=== PATIENT | female | born 2000 | race Asian ===

== ENCOUNTER 2018-05-13 13:48 | Inpatient (IN) | payer OTHER, SELFPAY ==
[2018-05-13] MEDS ORDERED: CCU Electrolyte Replacement 1 EACH IVPB ONE (14:56)
[2018-05-13] MEDS ORDERED: NS 0.9% w/ 20 MEQ KCL 1,000 ML IV PRN ×2 (14:56)
[2018-05-13] MEDS ORDERED: Dextrose 5 %-0.45 % NaCl 1,000 ML IV PRN (14:56)
[2018-05-13] MEDS ORDERED: Sodium Chloride 0.9% 1,000 ML IV PRN ×4 (14:56)
[2018-05-13] MEDS ORDERED: Calcium Carbonate 500 MG ChewTAB PO PRN (14:59)
[2018-05-13] MEDS ORDERED: Acetaminophen 325 MG TAB PO PRN (14:59)
[2018-05-13] MEDS ORDERED: Ondansetron ODT 4 MG TAB PO PRN (14:59)
[2018-05-13 15:30] LABS: Hemoglobin A1c 13.6 % (4.0-6.0)
[2018-05-13 15:33] LABS: BHCG - Serum Negative (NEGATIVE); Pregs Control Background? CLEAR/WHITE (CLR/WHITE); Pregs Control Bar Appear? YES (CONTROL BAR)
[2018-05-13] MEDS ORDERED: CCU ELECTROLYTE REPLACEMENT PROTOCOL FS PRN (15:37)
[2018-05-13] MEDS ORDERED: Magnesium 2 GM/NS 0.9% 100 ML 2 GM in Premix Bag 1 BAG IVPB PRN (15:37)
[2018-05-13] MEDS ORDERED: Potassium Phosphate 12 MMOL in Sodium Chloride 0.9% 250 ML 250 ML IV PRN (15:37)
[2018-05-13] MEDS ORDERED: Potassium Chloride 20 MEQ TAB PO PRN (15:37)
[2018-05-13] MEDS ORDERED: Potassium Phosphate 9 MMOL in Sodium Chloride 0.9% 100 ML IVPB PRN (15:37)
[2018-05-13] MEDS ORDERED: Potassium Chloride 40 MEQ in Sodium Chloride 0.9% 250 ML 250 ML IVPB PRN (15:37)
[2018-05-13] MEDS ORDERED: Potassium Chloride 40 MEQ in Premix Bag 1 BAG IVPB PRN (15:37)
[2018-05-13] MEDS ORDERED: Magnesium Oxide 400 MG TAB PO PRN ×2 (15:37)
[2018-05-13] MEDS ORDERED: Potassium Phosphate 15 MMOL in Sodium Chloride 0.9% 250 ML 250 ML IV PRN (15:37)
[2018-05-13 15:40] LABS: Phosphorus 3.9 mg/dL (2.3-4.7)
[2018-05-13 15:41] LABS: BUN (Urea Nitrogen) 9 mg/dL (8.4-21.0); Calc. Creatinine Clearance 0 mL/min (70-130); Calcium 9.2 mg/dL (7.8-10.44); Chloride 114 mmol/L (98-107); Estimated GFR-MDRD 77; Glucose 298 mg/dL (70-105); Potassium 4.5 mmol/L (3.5-5.1); Sodium 141 mmol/L (136-145)
[2018-05-13 15:43] VITALS: BMI 20.1
[2018-05-13 15:44] LABS: Lactic Acid 1.5 mmol/L (0.5-2.2)
[2018-05-13] MEDS ORDERED: Zolpidem Tartrate 5 MG TAB PO PRN (15:49)
[2018-05-13] MEDS ORDERED: Eucerin (Mineral Oil/Petrolatum,White) 30 gm Jar TOP PRN (15:49)
[2018-05-13] MEDS ORDERED: HYDROcodone/Acetaminophen 5/325 mg Tablet PO PRN (15:49)
[2018-05-13] MEDS ORDERED: Diabetic Tussin 200 MG/10 ML UDCUP PO PRN (15:49)
[2018-05-13] MEDS ORDERED: Sodium Chloride 0.65% Nasal 44 ML BOT EA NARE PRN (15:49)
[2018-05-13] MEDS ORDERED: Bisacodyl 5 MG TAB PO PRN (15:49)
[2018-05-13] MEDS ORDERED: Artificial Tears 18 DROP/0.9 ML EA EYE PRN (15:49)
[2018-05-13 15:51] LABS: Carbon Dioxide Less than 8 mmol/L (22-29)
[2018-05-13] MEDS: Ondansetron PF 4 MG/2 ML Vial IVP PRN (15:56)
[2018-05-13] MEDS: D5 1/2 NS w/20 mEq KCL 1,000 ML IV PRN ×2 (15:56→20:07)
--- NOTE | 2018-05-13 16:00 | HP ---
PRIMARY CARE PHYSICIAN: [facility] call admission. REASON FOR ADMISSION: Transfer from [facility] Emergency Room to our hospital for new onset diabetes type 1 and DKA. HISTORY OF PRESENT ILLNESS: A 17-year-old Pashto female who has no significant medical history who p resented to [facility] emergency room with a complaint of nausea and vomiting whi ch started last night. Patient was having persistent vomiting entire night as well as this morning s he was not able to keep anything down. She was feeling dehydrated. She was feeling weak and dizzy a nd that is why she went to local emergency room. Patient was diagnosed with diabetic ketoacidosis. The patient was given IV fluid and subsequently the patient was transferred to our hospital for furth er treatment. Patient denies any vomiting of blood. The patient denies any bilious vomiting. Patient denies any h eavy alcohol consumption. She drinks alcohol only occasionally. Before all this symptoms started, p atient was having polyuria and polydipsia, which she was thinking her normal habit of drinking lot of water. Patient's weight is also unchanged significantly. She does have family history of diabetes. She denies any fever or chills. She denies any allergy symptoms. She denies any respiratory sympt oms. She denies any UTI symptoms. She denies any chest pain, palpitation or syncope. REVIEW OF SYSTEMS: The following complete review of systems was negative, unless otherwise mentioned in the HPI or below: Constitutional: Weight loss or gain, ability to conduct usual activities. Skin: Rash, itching. Eyes: Double vision, pain. ENT/Mouth: Nose bleeding, neck stiffness, pain, tenderness. Cardiovascular: Palpitations, dyspnea on exertion, orthopnea. Respiratory: Shortness of breath, wheezing, cough, hemoptysis, fever or night sweats. Gastrointestinal: Poor appetite, abdominal pain, heartburn, nausea, vomiting, constipation, or diarr hea. Genitourinary: Urgency, frequency, dysuria, nocturia. Musculoskeletal: Pain, swelling. Neurologic/Psychiatric: Anxiety, depression. Allergy/Immunologic: Skin rash, bleeding tendency. Please see my HPI for pertinent positive and negative. All other review of systems reviewed and nega tive except as mentioned in the HPI. PAST MEDICAL HISTORY: The patient denies any previous medical history. PAST SURGICAL HISTORY: The patient reports that when she was 3 years old, at that time, she had sunshine gn tumor removed, which surgery done in [place], details not available. PAST PSYCHIATRIC HISTORY: Reviewed and negative. FAMILY HISTORY: Both parents have diabetes and one sister also diagnosed with diabetes. No family h istory of cancer, stroke, or coronary artery disease. SOCIAL HISTORY: Patient is a college student. She drinks alcohol socially. She denies any smoking. She denies any other illicit drug abuse. She is unmarried. EMERGENCY ROOM COURSE: At [facility] ER reviewed. The patient is currently getting insulin drip and IV fluid. CURRENT HOME MEDICATIONS: The patient prior to this she was not taking any prescribed or non-prescri bed medication. ALLERGIES: No known drug allergy. PHYSICAL EXAMINATION: VITAL SIGNS: Currently, blood pressure 100/70, pulse 102, respiratory rate 18, temperature 98.6, sat uration 100% on room air. GENERAL: The patient is currently alert, awake, no obvious acute distress. HEAD: Normocephalic, atraumatic. EYES: Pupils round, reactive to light. Extraocular muscle intact. ENT: Oropharynx within normal limits. Dry mucous membrane, no oral lesion, no pharyngeal erythema, no exudate. NECK: Supple, no JVD, no thyromegaly, no carotid bruit, no jugular venous distention. LUNGS: Clear to auscultation without any rhonchi or rales. CARDIAC: S1 and S2 regular, tachycardia, no murmur, no gallop, no rub. ABDOMEN: Soft, bowel sounds present, nontender, nondistended. No organomegaly, no mass, no suprapub ic tenderness. BACK: Unremarkable, no CVA tenderness. EXTREMITIES: Upper extremity passive movements of all joints are normal. Lower extremities: No gagan ma. Good distal pulsation. SKIN: No skin rash. HEMATOLOGICAL SYSTEM: No lymphadenopathy. PSYCHIATRIC: Normal affect. NEUROLOGIC: Nonfocal examination. SIGNIFICANT LABORATORY DATA: 1. Beta hCG negative. VBG: pH 7.14, CO2 24.3, O2 48, bicarbonate 8.3. 2. BMP: Sodium 142, potassium 4.2, chloride 110, glucose 369, BUN 10, creatinine 0.3, hemoglobin 17 .0, anion gap 27. 3. CBC: WBC 9.6, hemoglobin 16.7, platelet 276, albumin 5.1, alkaline phosphatase 76, AST 22, ALT 1 6, amylase 32, total protein 8.6. Urinalysis, glucosuria, ketonuria. ASSESSMENT AND PLAN/IMPRESSION: 1. New onset diabetes type 1. 2. Diabetes ketoacidosis, type 1. 3. Dehydration. PLAN: 1. The patient is admitted to Intermediate Care Unit. DKA protocol initiated. We will monitor BMP, serum ketones as per protocol. We will repeat electrolytes. Hemoglobin A1c checked. Upon stabiliz ation, we will consider transferring this patient to medical floor tomorrow and we will assess requir ement for insulin. Diabetes education will be given. Dietitian will be consulted. 2. Deep venous thrombosis prophylaxis, Lovenox 40 mg subcu daily. 3. Gastrointestinal prophylaxis, Pepcid 20 mg p.o. b.i.d. 4. Code status: The patient is FULL CODE. The patient is making decision by herself. Disposition plan based on clinical course. We are expecting patient's stay in hospital more than 2 m idnights. Plan of care discussed with the patient in detail.
[2018-05-13 16:40] LABS: ALT (SGPT) 9 U/L (8-55); AST (SGOT) 10 U/L (5-30); Albumin 4.6 g/dL (3.5-5.0); Alkaline Phosphatase 67 U/L (40-150); Bilirubin, Direct 0.1 mg/dL (0.1-0.3); Bilirubin, Total 0.5 mg/dL (0.2-1.2); Lipase 16 U/L (8-78); Protein, Total 7.8 g/dL (6.0-8.3)
[2018-05-13 19:42] LABS: Anion Gap 18 mmol/L (10-20); BUN (Urea Nitrogen) 7 mg/dL (8.4-21.0); Calc. Creatinine Clearance 91 mL/min (70-130); Calcium 8.9 mg/dL (7.8-10.44); Carbon Dioxide 10 mmol/L (22-29); Chloride 116 mmol/L (98-107); Estimated GFR-MDRD 71; Glucose 245 mg/dL (70-105); Sodium 140 mmol/L (136-145)
[2018-05-13] MEDS: Famotidine 20 MG TAB PO SCH (20:09)
[2018-05-14] MEDS: D5 1/2 NS w/20 mEq KCL 1,000 ML IV PRN ×2 (00:06→04:06)
[2018-05-14] MEDS: Ondansetron PF 4 MG/2 ML Vial IVP PRN (00:10)
[2018-05-14 05:03] LABS: ALT (SGPT) Less than 7 U/L (8-55); AST (SGOT) 7 U/L (5-30); Albumin 3.4 g/dL (3.5-5.0); Alkaline Phosphatase 48 U/L (40-150); Anion Gap 9 mmol/L (10-20); BUN (Urea Nitrogen) 8 mg/dL (8.4-21.0); Bilirubin, Total 0.5 mg/dL (0.2-1.2); Calc. Creatinine Clearance 112 mL/min (70-130); Calcium 8.4 mg/dL (7.8-10.44); Carbon Dioxide 14 mmol/L (22-29); Chloride 115 mmol/L (98-107); Estimated GFR-MDRD Greater than 90; Globulin 2.5 g/dL (2.4-3.5); Glucose 192 mg/dL (70-105); Magnesium 1.6 mg/dL (1.7-2.2); Phosphorus 1.8 mg/dL (2.3-4.7); Potassium 3.8 mmol/L (3.5-5.1); Protein, Total 5.9 g/dL (6.0-8.3); Sodium 134 mmol/L (136-145)
[2018-05-14] MEDS ORDERED: Dextrose 5% in Water 1,000 ML IV PRN (08:54)
[2018-05-14] MEDS ORDERED: Dextrose 50% Abboject 50 ML SYRINGE SLOW IVP PRN (08:54)
[2018-05-14] MEDS ORDERED: Insulin Glargine 10 UNITS in Pre-Filled Syringe SC SCH (09:00)
[2018-05-14] MEDS: Enoxaparin Sodium 40 MG/0.4 ML SYRINGE SC SCH (09:20)
[2018-05-14] MEDS: Famotidine 20 MG TAB PO SCH ×2 (09:20→20:39)
--- NOTE | 2018-05-14 10:23 | PDOC.PN ---
- Subjective Encounter Start Date: 05/14/18 Encounter Start Time: 08:45 -: old records requested/rev Patient seen and examined. No new complaints. No overnight events - Objective Resuscitation Status: Resuscitation Status FULL:Full Resuscitation MAR Reviewed: Yes Vital Signs & Weight: Vital Signs (12 hours) Temp Pulse Resp BP Pulse Ox 05/14/18 08:00 99 05/14/18 07:48 97.8 F 89 23 H 107/65 100 05/14/18 04:40 98.2 F 87 17 106/77 99 05/14/18 00:28 98.7 F 94 16 115/62 99 Weight Weight 140 lb 9.6 oz I&O: 05/13/18 05/14/18 05/15/18 06:59 06:59 06:59 Intake Total 4322 512 Balance 4322 512 Result Diagrams: 05/14/18 04:14 Additional Labs: Accuchecks 05/14/18 05/14/18 05/14/18 08:02 07:08 06:09 POC Glucose 208 H 222 H 192 H 05/14/18 05/14/18 05/14/18 04:46 03:13 02:13 POC Glucose 181 H 169 H 170 H 05/14/18 05/14/18 05/13/18 01:12 00:03 23:06 POC Glucose 146 H 165 H 184 H 05/13/18 05/13/18 05/13/18 22:05 21:04 20:09 POC Glucose 193 H 212 H 220 H 05/13/18 05/13/18 05/13/18 18:54 17:59 17:13 POC Glucose 230 H 234 H 226 H 05/13/18 05/13/18 16:21 15:12 POC Glucose 232 H 271 H EKG Reviewed by me: Yes (nsr) Phys Exam - Physical Examination Constitutional: NAD HEENT: PERRLA, moist MMs, sclera anicteric Neck: no JVD, supple Respiratory: no wheezing, no rales, no rhonchi Cardiovascular: RRR, no significant murmur, no rub Gastrointestinal: soft, non-tender, no distention, positive bowel sounds Musculoskeletal: no edema, pulses present Neurological: non-focal, normal sensation, moves all 4 limbs Lymphatic: no nodes Psychiatric: normal affect, A&O x 3 Skin: no rash, normal turgor Dx/Plan (1) DKA, type 1 Code(s): E10.10 - TYPE 1 DIABETES MELLITUS WITH KETOACIDOSIS WITHOUT COMA Status: Acute (2) Dehydration Code(s): E86.0 - DEHYDRATION Status: Acute (3) Abnormal blood electrolyte level Code(s): E87.8 - OTH DISORDERS OF ELECTROLYTE AND FLUID BALANCE, NEC Status: Acute (4) New onset type 1 diabetes mellitus, uncontrolled Code(s): E10.65 - TYPE 1 DIABETES MELLITUS WITH HYPERGLYCEMIA Status: Acute - Plan cont current plan of care, plan discussed w/ family * DKA now resolved, will start lantus 10 unit sc daily * gradually wean off insulin drip * transfer to medical floor * today will continue accucheck q 4 hrly and humalog as per sliding scale * dietary consult placed for diabetic diet education * discussed with mother bedside * replace electrolytes today * repeat labs tomorrow. Review of Systems - Review of Systems Eyes: negative: Pain, Vision Change, Conjunctivae Inflammation, Eyelid Inflammation, Redness, Other ENT: negative: Ear Pain, Ear Discharge, Nose Pain, Nose Discharge, Nose Congestion, Mouth Pain, Mouth Swelling, Throat Pain, Throat Swelling, Other Respiratory: negative: Cough, Dry, Shortness of Breath, Hemoptysis, SOB with Excertion, Pleuritic Pain, Sputum, Wheezing Cardiovascular: negative: chest pain, palpitations, orthopnea, paroxysmal nocturnal dyspnea, edema, light headedness, other Gastrointestinal: negative: Nausea, Vomiting, Abdominal Pain, Diarrhea, Constipation, Melena, Hematochezia, Other Genitourinary: negative: Dysuria, Frequency, Incontinence, Hematuria, Retention , Other Musculoskeletal: negative: Neck Pain, Shoulder Pain, Arm Pain, Back Pain, Hand Pain, Leg Pain, Foot Pain, Other Skin: negative: Rash, Lesions, Jorje, Bruising, Other - Medications/Allergies Allergies/Adverse Reactions: Allergies Allergy/AdvReac Type Severity Reaction Status Date / Time No Known Drug Allergies Allergy Verified 05/13/18 15:29 Medications: Current Medications Acetaminophen (Tylenol) 650 mg PO Q4H PRN PRN Reason: Headache/Fever/Mild Pain (1-3) Last Admin: 05/14/18 00:13 Dose: 650 mg Hydrocodone Bitart/Acetaminophen ([place] 5/325) 1 tab PO Q4H PRN PRN Reason: Moderate Pain (4-6) Artificial Tears (Tears Naturale) 2 drop EA EYE PRN PRN PRN Reason: Dry Eyes Bisacodyl (Dulcolax) 10 mg PO DAILYPRN PRN PRN Reason: Constipation Calcium Carbonate (Tums) 1,000 mg PO Q4H PRN PRN Reason: Heartburn or Indigestion Dextrose/Water (Dextrose 50%) 25 gm SLOW IVP PRN PRN PRN Reason: Hypoglycemia Enoxaparin Sodium (Lovenox) 40 mg SC 0900 [facility] Last Admin: 05/14/18 09:20 Dose: 40 mg Famotidine (Pepcid) 20 mg PO BID [facility] Last Admin: 05/14/18 09:20 Dose: 20 mg Glucagon (Glucagon) 1 mg IM PRN PRN PRN Reason: Hypoglycemia Guaifenesin (Robitussin Sf) 200 mg PO Q4H PRN PRN Reason: Cough Insulin Glargine 10 units/ (Miscellaneous Medication) 0.1 mls @ 0 mls/hr SC QAM [facility] Last Admin: 05/14/18 09:20 Dose: 0.1 mls Dextrose/Water (D5w) 1,000 mls @ 0 mls/hr IV .Q0M PRN PRN Reason: Hypoglycemia Insulin Human Lispro (Humalog) 0 units SC .AGGRESSIVE SLIDING PRN PRN Reason: Aggressive Correctional Scale Insulin Human Lispro (Humalog) 0 units SC .BEDTIME SLIDING SC PRN PRN Reason: Bedtime Correctional Scale Mineral Oil/White Petrolatum (Eucerin Cream) 0 gm TOP BIDPRN PRN PRN Reason: Dry Skin Ondansetron HCl (Zofran Odt) 4 mg PO Q6H PRN PRN Reason: Nausea/Vomiting Ondansetron HCl (Zofran) 4 mg IVP Q6H PRN PRN Reason: Nausea/Vomiting Last Admin: 05/14/18 00:10 Dose: 4 mg Sodium Chloride ([place] Nasal [place] 0.65%) 0 ml EA NARE QIDPRN PRN PRN Reason: Nasal Congestion Zolpidem Tartrate (Ambien) 5 mg PO HSPRN PRN PRN Reason: Insomnia
[2018-05-14] MEDS: HumaLOG 300 UNITS/3 ML VIAL SC PRN ×3 (12:05→21:45)
[2018-05-15 04:15] LABS: #Lymphocytes 1.4 thou/uL (1.20-3.40); #Monocytes 0.3 thou/uL (0.11-0.59); #Neutrophils 2.1 thou/uL (1.40-6.50); %Basophils 1.1 % (0.0-1.0); %Eosinophils 0.8 % (0.0-10.0); %Lymphocytes 35.7 % (28.0-48.0); %Monocytes 7.9 % (0.0-4.0); %Neutrophils 54.5 % (31.0-61.0); Hemoglobin 12.7 g/dL (12.0-16.0); Mean Corpuscular HGB CONC 34.6 g/dL (32.0-36.0); Mean Corpuscular Hemoglobin 31.9 pg (25.0-35.0); Mean Corpuscular Volume 92.4 fL (78.0-98.0); Platelet Count 193 thou/uL (130-400); RBC Distribution Width 11.4 % (11.5-14.5); Red Blood Cell (RBC) Count 3.97 mill/uL (4.00-5.20); White Blood Cell (WBC) Count 3.8 thou/uL (4.8-10.8)
[2018-05-15 04:28] LABS: Anion Gap 13 mmol/L (10-20); BUN (Urea Nitrogen) 8 mg/dL (8.4-21.0); Calc. Creatinine Clearance 132 mL/min (70-130); Carbon Dioxide 17 mmol/L (22-29); Chloride 110 mmol/L (98-107); Estimated GFR-MDRD Greater than 90; Glucose 306 mg/dL (70-105); Magnesium 1.6 mg/dL (1.7-2.2); Potassium 3.4 mmol/L (3.5-5.1); Sodium 137 mmol/L (136-145)
[2018-05-15] MEDS: HumaLOG 300 UNITS/3 ML VIAL SC PRN ×4 (06:00→20:49)
[2018-05-15] MEDS ORDERED: Magnesium Sulfate 4 GM in Sodium Chloride 0.9% 250 ML 250 ML IVPB SCH (08:00)
[2018-05-15] MEDS ORDERED: Potassium Phosphate 30 MMOL in Sodium Chloride 0.9% 500 ML IVPB SCH (08:00)
[2018-05-15] MEDS: Enoxaparin Sodium 40 MG/0.4 ML SYRINGE SC SCH (09:14)
[2018-05-15] MEDS: Famotidine 20 MG TAB PO SCH ×2 (09:14→20:48)
[2018-05-15] MEDS: Insulin Glargine 16 UNITS in Pre-Filled Syringe 1 EACH SC SCH (09:17)
--- NOTE | 2018-05-15 10:21 | PDOC.PN ---
- Subjective Encounter Start Date: 05/15/18 Encounter Start Time: 08:40 Patient seen and examined. No new complaints. No overnight events - Objective Resuscitation Status: Resuscitation Status FULL:Full Resuscitation MAR Reviewed: Yes Vital Signs & Weight: Vital Signs (12 hours) Temp Pulse Resp BP Pulse Ox 05/15/18 08:00 98.2 F 85 16 115/74 98 05/15/18 04:00 97.8 F 78 16 117/77 99 05/15/18 00:00 98.7 F 84 16 110/74 98 Weight Weight 140 lb 9.6 oz I&O: 05/14/18 05/15/18 05/16/18 06:59 06:59 06:59 Intake Total 4322 752 Balance 4322 752 Result Diagrams: 05/15/18 03:14 05/15/18 03:14 Additional Labs: Accuchecks 05/15/18 05/15/18 05/15/18 09:19 05:56 00:52 POC Glucose 206 H 260 H 229 H 05/14/18 05/14/18 05/14/18 20:48 15:13 11:53 POC Glucose 322 H 247 H 190 H Phys Exam - Physical Examination Constitutional: NAD HEENT: PERRLA, moist MMs, sclera anicteric Neck: no JVD, supple Respiratory: no wheezing, no rales, no rhonchi Cardiovascular: RRR, no significant murmur, no rub Gastrointestinal: soft, non-tender, no distention, positive bowel sounds Musculoskeletal: no edema, pulses present Neurological: non-focal, normal sensation, moves all 4 limbs Psychiatric: normal affect, A&O x 3 Skin: no rash, normal turgor Dx/Plan (1) DKA, type 1 Code(s): E10.10 - TYPE 1 DIABETES MELLITUS WITH KETOACIDOSIS WITHOUT COMA Status: Acute (2) Dehydration Code(s): E86.0 - DEHYDRATION Status: Resolved (3) Abnormal blood electrolyte level Code(s): E87.8 - OTH DISORDERS OF ELECTROLYTE AND FLUID BALANCE, NEC Status: Acute (4) New onset type 1 diabetes mellitus, uncontrolled Code(s): E10.65 - TYPE 1 DIABETES MELLITUS WITH HYPERGLYCEMIA Status: Acute - Plan cont current plan of care * medication reviewed as below * symptomatic treatment * increase levemir 16 unit sc am and 8 unit sc pm * replace potassium phosphate, magnesium sulfate * repeat labs later today * will monitor as her ketons still high. Review of Systems - Review of Systems ENT: negative: Ear Pain, Ear Discharge, Nose Pain, Nose Discharge, Nose Congestion, Mouth Pain, Mouth Swelling, Throat Pain, Throat Swelling, Other Respiratory: negative: Cough, Dry, Shortness of Breath, Hemoptysis, SOB with Excertion, Pleuritic Pain, Sputum, Wheezing Cardiovascular: negative: chest pain, palpitations, orthopnea, paroxysmal nocturnal dyspnea, edema, light headedness, other Gastrointestinal: negative: Nausea, Vomiting, Abdominal Pain, Diarrhea, Constipation, Melena, Hematochezia, Other Genitourinary: negative: Dysuria, Frequency, Incontinence, Hematuria, Retention , Other Musculoskeletal: negative: Neck Pain, Shoulder Pain, Arm Pain, Back Pain, Hand Pain, Leg Pain, Foot Pain, Other Skin: negative: Rash, Lesions, Jorje, Bruising, Other - Medications/Allergies Allergies/Adverse Reactions: Allergies Allergy/AdvReac Type Severity Reaction Status Date / Time No Known Drug Allergies Allergy Verified 05/13/18 15:29 Medications: Current Medications Acetaminophen (Tylenol) 650 mg PO Q4H PRN PRN Reason: Headache/Fever/Mild Pain (1-3) Last Admin: 05/14/18 00:13 Dose: 650 mg Hydrocodone Bitart/Acetaminophen ([place] 5/325) 1 tab PO Q4H PRN PRN Reason: Moderate Pain (4-6) Artificial Tears (Tears Naturale) 2 drop EA EYE PRN PRN PRN Reason: Dry Eyes Bisacodyl (Dulcolax) 10 mg PO DAILYPRN PRN PRN Reason: Constipation Calcium Carbonate (Tums) 1,000 mg PO Q4H PRN PRN Reason: Heartburn or Indigestion Dextrose/Water (Dextrose 50%) 25 gm SLOW IVP PRN PRN PRN Reason: Hypoglycemia Enoxaparin Sodium (Lovenox) 40 mg SC 0900 [facility] Last Admin: 05/15/18 09:14 Dose: 40 mg Famotidine (Pepcid) 20 mg PO BID [facility] Last Admin: 05/15/18 09:14 Dose: 20 mg Glucagon (Glucagon) 1 mg IM PRN PRN PRN Reason: Hypoglycemia Guaifenesin (Robitussin Sf) 200 mg PO Q4H PRN PRN Reason: Cough Dextrose/Water (D5w) 1,000 mls @ 0 mls/hr IV .Q0M PRN PRN Reason: Hypoglycemia Magnesium Sulfate 4 gm/ Sodium (Chloride) 258 mls @ 86 mls/hr IVPB NOW [facility] Stop: 05/15/18 10:59 Last Admin: 05/15/18 09:14 Dose: 258 mls Potassium Phosphate 30 mmol/ (Sodium Chloride) 510 mls @ 83.3 mls/hr IVPB NOW [facility] Stop: 05/15/18 14:08 Insulin Glargine 16 units/ (Miscellaneous Medication) 0.16 mls @ 0 mls/hr SC QAM [facility] Last Admin: 05/15/18 09:17 Dose: 0.16 mls Insulin Glargine 8 units/ (Miscellaneous Medication) 0.08 mls @ 0 mls/hr SC HS [facility] Insulin Human Lispro (Humalog) 0 units SC .AGGRESSIVE SLIDING PRN PRN Reason: Aggressive Correctional Scale Last Admin: 05/15/18 06:00 Dose: 9 unit Insulin Human Lispro (Humalog) 0 units SC .BEDTIME SLIDING SC PRN PRN Reason: Bedtime Correctional Scale Last Admin: 05/14/18 21:45 Dose: 4 units Mineral Oil/White Petrolatum (Eucerin Cream) 0 gm TOP BIDPRN PRN PRN Reason: Dry Skin Ondansetron HCl (Zofran Odt) 4 mg PO Q6H PRN PRN Reason: Nausea/Vomiting Ondansetron HCl (Zofran) 4 mg IVP Q6H PRN PRN Reason: Nausea/Vomiting Last Admin: 05/14/18 00:10 Dose: 4 mg Sodium Chloride ([place] Nasal [place] 0.65%) 0 ml EA NARE QIDPRN PRN PRN Reason: Nasal Congestion Zolpidem Tartrate (Ambien) 5 mg PO HSPRN PRN PRN Reason: Insomnia
[2018-05-15 16:19] LABS: Magnesium 1.9 mg/dL (1.7-2.2); Phosphorus 3.9 mg/dL (2.3-4.7); Potassium 3.8 mmol/L (3.5-5.1)
[2018-05-15] MEDS ORDERED: Insulin Glargine 8 UNITS in Pre-Filled Syringe 1 EACH SC SCH (21:00)
[2018-05-16] MEDS: HumaLOG 300 UNITS/3 ML VIAL SC PRN ×3 (00:29→08:33)
[2018-05-16] MEDS: Insulin Glargine 16 UNITS in Pre-Filled Syringe 1 EACH SC SCH (08:33)
[2018-05-16] MEDS: Enoxaparin Sodium 40 MG/0.4 ML SYRINGE SC SCH (08:34)
[2018-05-16] MEDS: Famotidine 20 MG TAB PO SCH (08:35)
[2018-05-16 09:10] VITALS: BP 117/82; TEMP 97.8
--- NOTE | 2018-05-16 09:37 | PDOC.PN ---
- Subjective Encounter Start Date: 05/16/18 Encounter Start Time: 09:10 Patient seen and examined. No new complaints. No overnight events - Objective Resuscitation Status: Resuscitation Status FULL:Full Resuscitation MAR Reviewed: Yes Vital Signs & Weight: Vital Signs (12 hours) Temp Pulse Resp BP Pulse Ox 05/16/18 08:00 97.8 F 83 16 117/82 98 Weight Weight 140 lb 9.6 oz I&O: 05/15/18 05/16/18 05/17/18 06:59 06:59 06:59 Intake Total 752 1000 Balance 752 1000 Result Diagrams: 05/15/18 03:14 05/15/18 15:43 Additional Labs: Accuchecks 05/16/18 05/16/18 05/16/18 08:33 04:49 00:12 POC Glucose 179 H 226 H 299 H 05/15/18 05/15/18 05/15/18 20:45 16:19 13:33 POC Glucose 342 H 275 H 230 H 05/15/18 09:19 POC Glucose 206 H Phys Exam - Physical Examination Constitutional: NAD HEENT: PERRLA, moist MMs, sclera anicteric Neck: no JVD, supple Respiratory: no wheezing, no rales, no rhonchi Cardiovascular: RRR, no significant murmur, no rub Gastrointestinal: soft, non-tender, no distention, positive bowel sounds Musculoskeletal: no edema, pulses present Neurological: non-focal, normal sensation, moves all 4 limbs Psychiatric: normal affect, A&O x 3 Skin: no rash, normal turgor Dx/Plan (1) DKA, type 1 Code(s): E10.10 - TYPE 1 DIABETES MELLITUS WITH KETOACIDOSIS WITHOUT COMA Status: Acute (2) Dehydration Code(s): E86.0 - DEHYDRATION Status: Resolved (3) Abnormal blood electrolyte level Code(s): E87.8 - OTH DISORDERS OF ELECTROLYTE AND FLUID BALANCE, NEC Status: Acute (4) New onset type 1 diabetes mellitus, uncontrolled Code(s): E10.65 - TYPE 1 DIABETES MELLITUS WITH HYPERGLYCEMIA Status: Acute - Plan cont current plan of care, plan discussed w/ family * medication reviewed as below * symptomatic treatment * see discharge summery. Review of Systems - Review of Systems ENT: negative: Ear Pain, Ear Discharge, Nose Pain, Nose Discharge, Nose Congestion, Mouth Pain, Mouth Swelling, Throat Pain, Throat Swelling, Other Respiratory: negative: Cough, Dry, Shortness of Breath, Hemoptysis, SOB with Excertion, Pleuritic Pain, Sputum, Wheezing Cardiovascular: negative: chest pain, palpitations, orthopnea, paroxysmal nocturnal dyspnea, edema, light headedness, other Gastrointestinal: negative: Nausea, Vomiting, Abdominal Pain, Diarrhea, Constipation, Melena, Hematochezia, Other Genitourinary: negative: Dysuria, Frequency, Incontinence, Hematuria, Retention , Other Musculoskeletal: negative: Neck Pain, Shoulder Pain, Arm Pain, Back Pain, Hand Pain, Leg Pain, Foot Pain, Other Skin: negative: Rash, Lesions, Jorje, Bruising, Other - Medications/Allergies Allergies/Adverse Reactions: Allergies Allergy/AdvReac Type Severity Reaction Status Date / Time No Known Drug Allergies Allergy Verified 05/13/18 15:29 Medications: Current Medications Acetaminophen (Tylenol) 650 mg PO Q4H PRN PRN Reason: Headache/Fever/Mild Pain (1-3) Last Admin: 05/14/18 00:13 Dose: 650 mg Hydrocodone Bitart/Acetaminophen ([place] 5/325) 1 tab PO Q4H PRN PRN Reason: Moderate Pain (4-6) Artificial Tears (Tears Naturale) 2 drop EA EYE PRN PRN PRN Reason: Dry Eyes Bisacodyl (Dulcolax) 10 mg PO DAILYPRN PRN PRN Reason: Constipation Calcium Carbonate (Tums) 1,000 mg PO Q4H PRN PRN Reason: Heartburn or Indigestion Dextrose/Water (Dextrose 50%) 25 gm SLOW IVP PRN PRN PRN Reason: Hypoglycemia Enoxaparin Sodium (Lovenox) 40 mg SC 0900 [facility] Last Admin: 05/16/18 08:34 Dose: 40 mg Famotidine (Pepcid) 20 mg PO BID [facility] Last Admin: 05/16/18 08:35 Dose: 20 mg Glucagon (Glucagon) 1 mg IM PRN PRN PRN Reason: Hypoglycemia Guaifenesin (Robitussin Sf) 200 mg PO Q4H PRN PRN Reason: Cough Dextrose/Water (D5w) 1,000 mls @ 0 mls/hr IV .Q0M PRN PRN Reason: Hypoglycemia Insulin Glargine 20 units/ (Miscellaneous Medication) 0.2 mls @ 0 mls/hr SC QAM [facility] Insulin Glargine 10 units/ (Miscellaneous Medication) 0.1 mls @ 0 mls/hr SC HS [facility] Insulin Human Lispro (Humalog) 0 units SC .AGGRESSIVE SLIDING PRN PRN Reason: Aggressive Correctional Scale Last Admin: 05/16/18 08:33 Dose: 3 unit Insulin Human Lispro (Humalog) 0 units SC .BEDTIME SLIDING SC PRN PRN Reason: Bedtime Correctional Scale Last Admin: 05/16/18 00:29 Dose: 3 units Mineral Oil/White Petrolatum (Eucerin Cream) 0 gm TOP BIDPRN PRN PRN Reason: Dry Skin Ondansetron HCl (Zofran Odt) 4 mg PO Q6H PRN PRN Reason: Nausea/Vomiting Ondansetron HCl (Zofran) 4 mg IVP Q6H PRN PRN Reason: Nausea/Vomiting Last Admin: 05/14/18 00:10 Dose: 4 mg Sodium Chloride ([place] Nasal [place] 0.65%) 0 ml EA NARE QIDPRN PRN PRN Reason: Nasal Congestion Zolpidem Tartrate (Ambien) 5 mg PO HSPRN PRN PRN Reason: Insomnia
--- NOTE | 2018-05-16 10:23 | DIS ---
PRIMARY CARE PHYSICIAN: [facility] call admission. DATE OF ADMISSION: 05/13/2018 DATE OF DISCHARGE: 05/16/2018 DISCHARGE DISPOSITION: Home. PRIMARY DISCHARGE DIAGNOSES: 1. New onset diabetes type 1. 2. Diabetes ketoacidosis, resolved. 3. Dehydration, corrected. 4. Abnormal blood electrolytes corrected. SECONDARY DISCHARGE DIAGNOSIS: None. PRIMARY PROCEDURE/OPERATION: None. RADIOLOGICAL INVESTIGATION: None. SIGNIFICANT LABORATORY DATA: WBC 3.8, hemoglobin 12.7, platelet 193. Sodium 137, potassium 3.8, aayush sphorus 3.9, magnesium 1.9, ketones 1.75. DISCHARGE MEDICATIONS: Lantus insulin 20 units subcu in the morning and 10 units at bedtime, Humalog insulin as per sliding scale. CONTRAINDICATIONS: None. CODE STATUS: FULL CODE. INPATIENT CONSULTANTS: None. ALLERGIES: No known drug allergy. DISCHARGE PLAN: Post hospital, the patient is discharged to home. Subsequently, the patient will fo llow with primary care physician. HOSPITAL COURSE: A 17-year-old female with the above-mentioned medical problem, who came to hospital with generalized weakness, polyuria, polydipsia. She was found with hyperglycemia. She had new haley gnosis of diabetes type 1. She was diagnosed with DKA. She was admitted to hospital. Initially, jayne padilla went to outside [facility] and subsequently she was transferred to our hospital. Maggie parekh had DKA as she was treated with DKA protocol treatment with insulin drip, IV fluid. She had abn ormal electrolytes, which was corrected while in hospital. Once DKA resolved the patient was transfe rred to the medical floor where we continued to replace electrolytes and adjusting insulin. Above-me ntioned insulin dose was adjusted. The patient is instructed to follow up with [facility] physician for further adjustment. Necessary patient education about diabetes diet as wel l as medication was given. The patient is seen and examined at bedside today. Plan of care discussed with the patient and rocio rodriguez. Please see my progress note from today for further details.
[2018-05-16] MEDS ORDERED: Insulin Glargine 10 UNITS in Pre-Filled Syringe 1 EACH SC SCH (21:00)
[2018-05-17] MEDS ORDERED: Insulin Glargine 20 UNITS in Pre-Filled Syringe 1 EACH SC SCH (09:00)
== END 2018-05-16 10:28 | disposition home or self-care (01) | DRG 639 ==
LOC: IMCU/EMU 14:52 → T4-B 05-14 13:07
PROVIDERS: ADMIT Internal Medicine; ATTEND Internal Medicine
DX: E10.10 Type 1 diabetes mellitus with ketoacidosis without coma (principal); E86.0 Dehydration
CPT/HCPCS: 36415; 36416; 80048; 80053; 80076; 82010; 83036; 83605; 83690; 83735; 84100; 84703; 85025; 90471; 90686; G0008; J1650; J1815; J2405; J3475; J7050